=== PATIENT | female | born 1940 | race Caucasian/White ===

== ENCOUNTER 2018-07-08 14:43 | Emergency (ER) | payer OTHER ==
[~2018-07-08] VITALS: Ht 154.9 cm; Wt 54.4 kg
[2018-07-08 15:25] VITALS: Ht 154.9 cm; Wt 54.4 kg
[2018-07-08 16:08] LABS: microscopic required? NO
[2018-07-08 16:18] LABS: urine erythrocyte NEGATIVE (NEGATIVE)
[2018-07-08 16:19] LABS: BASOPHIL % 0.5 % (0-2)
[2018-07-08 16:28] LABS: CALCIUM 8.2 mg/dL (8.5-10.1); CARBON DIOXIDE 26.7 mmol/L (21-32); CHLORIDE SERUM 102 mmol/L (98-107); CREATININE SERUM 0.7 mg/dL (0.6-1.0); GLUCOSE SERUM 112 mg/dL (74-106); POTASSIUM SERUM 4.1 mmol/L (3.5-5.1); SODIUM SERUM 136 mmol/L (136-145)
[2018-07-08 16:30] LABS: AMPHETAMINE QUAL UR NONE DETECTED (See below)
[2018-07-08 16:35] LABS: PLATELET COUNT 480 x10^3mcL (130-400); RED CELL DISTRIBUTION WIDTH 16.2 % (11.5-14.5)
[2018-07-08 16:39] LABS: ALKALINE PHOSPHATASE 77 U/L (46-116); ALT/SGPT 10 U/L (14-59); AMYLASE 52 U/L (25-115); AST/SGOT 13 U/L (15-37); BILIRUBIN TOTAL 0.27 mg/dL (0.20-1.00); CHOLESTEROL 143 mg/dL (<200); HDL CHOLESTEROL 44 mg/dL (40-60); LIPASE 134 IU/L (73-393); MAGNESIUM 2.2 mg/dL (1.8-2.4); T4(THYROXINE) 7.1 ug/dL (4.7-13.3); TOTAL PROTEIN, SERUM 6.4 g/dL (6.4-8.2)
[2018-07-08 16:40] LABS: ALBUMIN 2.7 g/dL (3.4-5.0)
[2018-07-08 18:31] VITALS: BP 118/74
== END 2018-07-08 18:31 | disposition home or self-care (01) ==
LOC: ED 14:43
PROVIDERS: Emergency Medicine
DX: F03.90 Unspecified dementia, unspecified severity, without behavioral disturbance, psychotic disturbance, mood disturbance, and anxiety (principal); D64.9 Anemia, unspecified; N93.9 Abnormal uterine and vaginal bleeding, unspecified
CPT/HCPCS: 36415; 82962; G0480

== ENCOUNTER 2018-12-09 18:49 | Emergency (ER) | payer OTHER ==
[~2018-12-09] VITALS: Ht 154.9 cm; Wt 49.9 kg
[2018-12-09 19:05] VITALS: BP 138/75; Ht 154.9 cm; Wt 49.9 kg
== END 2018-12-09 19:35 | disposition left against medical advice (07) ==
LOC: ED 18:49
DX: F03.90 Unspecified dementia, unspecified severity, without behavioral disturbance, psychotic disturbance, mood disturbance, and anxiety (principal)

== ENCOUNTER 2019-06-10 23:29 | Inpatient (IN) | payer OTHER ==
[~2019-06-10] VITALS: Ht 147.3 cm; Wt 46.0 kg
[2019-06-10 23:37] VITALS: Ht 147.3 cm; Wt 46.0 kg
[2019-06-11 00:21] LABS: BASOPHIL % 0.8 % (0-2)
[2019-06-11 00:24] LABS: PLATELET COUNT 459 x10^3mcL (130-400); RED CELL DISTRIBUTION WIDTH 19.8 % (11.5-14.5)
[2019-06-11 00:43] LABS: rbc morphology (normal/abnorm) ABNORMAL (NORMAL)
[2019-06-11 00:44] LABS: acanthocyte (spur cell) 1+
[2019-06-11 00:47] LABS: ALKALINE PHOSPHATASE 79 U/L (46-116); ALT/SGPT 15 U/L (14-59); AST/SGOT 11 U/L (15-37); BILIRUBIN TOTAL 0.3 mg/dL (0.20-1.00); CALCIUM 7.8 mg/dL (8.5-10.1); CARBON DIOXIDE 26.2 mmol/L (21-32); CHLORIDE SERUM 93 mmol/L (98-107); CREATININE SERUM 0.6 mg/dL (0.6-1.0); GLUCOSE SERUM 119 mg/dL (74-106); POTASSIUM SERUM 4.8 mmol/L (3.5-5.1)
[2019-06-11 00:48] LABS: ALBUMIN 2.8 g/dL (3.4-5.0); TOTAL PROTEIN, SERUM 5.8 g/dL (6.4-8.2)
[2019-06-11 00:48] LABS: microscopic required? NO
[2019-06-11 00:49] LABS: SODIUM SERUM 124 mmol/L (136-145)
[2019-06-11 00:58] LABS: urine erythrocyte NEGATIVE (NEGATIVE)
[2019-06-11 01:30] LABS: AMPHETAMINE QUAL UR NONE DETECTED (See below)
[2019-06-11 01:38] LABS: CHOLESTEROL 91 mg/dL (<200); HDL CHOLESTEROL 33 mg/dL (40-60); LIPASE 156 IU/L (73-393); MAGNESIUM 2.3 mg/dL (1.8-2.4); T4(THYROXINE) 6.4 ug/dL (4.7-13.3)
[2019-06-11 05:43] LABS: BASOPHIL % 0.6 % (0-2); PLATELET COUNT 371 x10^3mcL (130-400)
[2019-06-11 05:49] LABS: RED CELL DISTRIBUTION WIDTH 27.3 % (11.5-14.5)
[2019-06-11 06:04] LABS: CALCIUM 7.5 mg/dL (8.5-10.1); CARBON DIOXIDE 21.5 mmol/L (21-32); CHLORIDE SERUM 103 mmol/L (98-107); CREATININE SERUM 0.6 mg/dL (0.6-1.0); GLUCOSE SERUM 104 mg/dL (74-106); MAGNESIUM 2.1 mg/dL (1.8-2.4); PHOSPHOROUS 3.7 mg/dL (2.5-4.9); POTASSIUM SERUM 4.2 mmol/L (3.5-5.1); SODIUM SERUM 134 mmol/L (136-145)
[2019-06-11 06:08] LABS: rbc morphology (normal/abnorm) ABNORMAL (NORMAL)
[2019-06-11 08:20] VITALS: BP 167/80
[2019-06-11 08:45] VITALS: BP 135/51; BP 235/51
[2019-06-11 13:11] VITALS: BP 137/52
[2019-06-11 13:30] LABS: IRON 128 ug/dL (50-170); TOTAL IRON BINDING CAPACITY 404 ug/dL (250-450)
[2019-06-11 16:14] VITALS: BP 153/53
[2019-06-11 19:55] VITALS: BP 117/46
[2019-06-12 04:44] VITALS: BP 131/48
[2019-06-12 07:09] LABS: BASOPHIL % 1.5 % (0-2); PLATELET COUNT 342 x10^3mcL (130-400)
[2019-06-12 07:23] LABS: CARBON DIOXIDE 23.9 mmol/L (21-32); CHLORIDE SERUM 99 mmol/L (98-107); CREATININE SERUM 0.6 mg/dL (0.6-1.0); GLUCOSE SERUM 89 mg/dL (74-106); MAGNESIUM 2.2 mg/dL (1.8-2.4); PHOSPHOROUS 3.7 mg/dL (2.5-4.9); SODIUM SERUM 132 mmol/L (136-145)
[2019-06-12 07:40] LABS: RED CELL DISTRIBUTION WIDTH 28.2 % (11.5-14.5); rbc morphology (normal/abnorm) ABNORMAL (NORMAL)
[2019-06-12 09:42] VITALS: BP 122/43
[2019-06-12 12:10] VITALS: BP 124/40
[2019-06-12 17:00] VITALS: BP 100/43
[2019-06-12 22:10] VITALS: BP 99/78
[2019-06-13 04:41] VITALS: BP 91/53
[2019-06-13 06:48] LABS: PLATELET COUNT 338 x10^3mcL (130-400)
[2019-06-13 06:54] LABS: CALCIUM 7.6 mg/dL (8.5-10.1); CARBON DIOXIDE 23.7 mmol/L (21-32); CHLORIDE SERUM 101 mmol/L (98-107); CREATININE SERUM 0.7 mg/dL (0.6-1.0); GLUCOSE SERUM 121 mg/dL (74-106); POTASSIUM SERUM 3.8 mmol/L (3.5-5.1); SODIUM SERUM 135 mmol/L (136-145)
[2019-06-13 14:24] LABS: BAND NEUTROPHIL 0 % (0-10); BASOPHIL 0 % (0-2); MONOCYTE 2 % (0-7); SEGMENTED NEUTROPHILS 97 % (37-75)
[2019-06-13 14:25] LABS: PLATELET MORPHOLOGY PLATELETS INCREASED; rbc morphology (normal/abnorm) ABNORMAL (NORMAL)
[2019-06-13 18:00] VITALS: BP 99/62
[2019-06-13 20:49] VITALS: BP 103/62
[2019-06-14] VITALS (7 sets, daily range): BP systolic 104–132; BP diastolic 36–105
[2019-06-14 07:06] LABS: CALCIUM 8.1 mg/dL (8.5-10.1); CARBON DIOXIDE 22.9 mmol/L (21-32); CHLORIDE SERUM 102 mmol/L (98-107); CREATININE SERUM 0.5 mg/dL (0.6-1.0); GLUCOSE SERUM 80 mg/dL (74-106); POTASSIUM SERUM 3.3 mmol/L (3.5-5.1); SODIUM SERUM 133 mmol/L (136-145)
[2019-06-14 07:44] LABS: PLATELET COUNT 64 x10^3mcL (130-400); RED CELL DISTRIBUTION WIDTH 29.3 % (11.5-14.5)
[2019-06-14 09:42] LABS: BAND NEUTROPHIL 0 % (0-10); BASOPHIL 0 % (0-2); MONOCYTE 9 % (0-7); SEGMENTED NEUTROPHILS 82 % (37-75)
[2019-06-14 09:43] LABS: PLATELET MORPHOLOGY PLATELETS DECREASED
[2019-06-14 09:44] LABS: rbc morphology (normal/abnorm) ABNORMAL (NORMAL)
[2019-06-14 09:46] LABS: ovalocyte/elliptocyte 2+
[2019-06-15] VITALS (7 sets, daily range): BP systolic 112–139; BP diastolic 40–70
[2019-06-15 06:52] LABS: CALCIUM 8.5 mg/dL (8.5-10.1); CARBON DIOXIDE 24.6 mmol/L (21-32); CHLORIDE SERUM 107 mmol/L (98-107); CREATININE SERUM 0.5 mg/dL (0.6-1.0); GLUCOSE SERUM 90 mg/dL (74-106); POTASSIUM SERUM 3.5 mmol/L (3.5-5.1); SODIUM SERUM 139 mmol/L (136-145)
[2019-06-15 07:32] LABS: BASOPHIL % 0.4 % (0-2); PLATELET COUNT 311 x10^3mcL (130-400)
[2019-06-15 07:49] LABS: RED CELL DISTRIBUTION WIDTH 29.4 % (11.5-14.5)
[2019-06-15 11:03] LABS: rbc morphology (normal/abnorm) ABNORMAL (NORMAL)
[2019-06-16 06:13] VITALS: BP 146/45
[2019-06-16 07:15] LABS: BASOPHIL % 0.5 % (0-2); PLATELET COUNT 293 x10^3mcL (130-400)
[2019-06-16 07:16] LABS: RED CELL DISTRIBUTION WIDTH 30.9 % (11.5-14.5)
[2019-06-16 08:14] LABS: CARBON DIOXIDE 24 mmol/L (21-32); CHLORIDE SERUM 101 mmol/L (98-107); POTASSIUM SERUM 3.3 mmol/L (3.5-5.1); SODIUM SERUM 135 mmol/L (136-145)
[2019-06-16 08:16] LABS: CREATININE SERUM 0.6 mg/dL (0.6-1.0); GLUCOSE SERUM 80 mg/dL (74-106)
[2019-06-16 08:17] LABS: CALCIUM 8.4 mg/dL (8.5-10.1)
[2019-06-16] MEDS ORDERED: FER300 PO (09:12)
[2019-06-16] MEDS ORDERED: LAC30L PO (09:12)
[2019-06-16] MEDS ORDERED: LIPI10 PO (09:12)
[2019-06-16] MEDS ORDERED: PRI20 PO (09:12)
[2019-06-16 09:36] LABS: rbc morphology (normal/abnorm) ABNORMAL (NORMAL)
[2019-06-16 12:25] VITALS: BP 122/101
[2019-06-16 13:12] VITALS: BP 127/52; BP 146/45; BP 96/39
[2019-06-16 16:24] VITALS: BP 111/38
[2019-06-16 19:22] VITALS: BP 129/60
[2019-06-17 04:38] VITALS: BP 141/42
[2019-06-17 09:43] VITALS: BP 115/44
[2019-06-17 12:56] VITALS: BP 127/52
[2019-06-17 17:23] VITALS: BP 128/66
[2019-06-17 20:23] VITALS: BP 136/49
[2019-06-18 05:33] VITALS: BP 141/97
[2019-06-18 07:20] LABS: PLATELET COUNT 337 x10^3mcL (130-400)
[2019-06-18 08:03] LABS: BASOPHIL % 0 % (0-2); RED CELL DISTRIBUTION WIDTH 33.9 % (11.5-14.5)
[2019-06-18 08:58] VITALS: BP 113/43
[2019-06-18 11:46] LABS: rbc morphology (normal/abnorm) ABNORMAL (NORMAL)
[2019-06-18 18:08] VITALS: BP 114/41
[2019-06-18 21:32] VITALS: BP 111/43
[2019-06-19 05:44] VITALS: BP 138/50
[2019-06-19 06:46] LABS: BASOPHIL % 0.6 % (0-2); PLATELET COUNT 306 x10^3mcL (130-400)
[2019-06-19 07:56] LABS: CARBON DIOXIDE 23.4 mmol/L (21-32); CHLORIDE SERUM 101 mmol/L (98-107); CREATININE SERUM 0.5 mg/dL (0.6-1.0); GLUCOSE SERUM 83 mg/dL (74-106); POTASSIUM SERUM 3.3 mmol/L (3.5-5.1); SODIUM SERUM 135 mmol/L (136-145)
[2019-06-19 07:57] LABS: CALCIUM 7.5 mg/dL (8.5-10.1)
[2019-06-19 07:59] LABS: RED CELL DISTRIBUTION WIDTH 34.6 % (11.5-14.5)
[2019-06-19 08:10] VITALS: BP 139/55
[2019-06-19 08:37] LABS: rbc morphology (normal/abnorm) ABNORMAL (NORMAL)
[2019-06-19 17:33] VITALS: BP 117/42
[2019-06-19 20:59] VITALS: BP 106/42
[2019-06-20 06:09] VITALS: BP 130/55
[2019-06-20 08:20] VITALS: BP 122/33
[2019-06-20 11:40] VITALS: BP 104/31
[2019-06-20 13:06] LABS: BASOPHIL % 0.2 % (0-2); PLATELET COUNT 395 x10^3mcL (130-400)
[2019-06-20 13:11] LABS: RED CELL DISTRIBUTION WIDTH 34.1 % (11.5-14.5)
[2019-06-20 14:20] LABS: POTASSIUM SERUM 3.9 mmol/L (3.5-5.1); SODIUM SERUM 134 mmol/L (136-145)
[2019-06-20 14:21] LABS: CALCIUM 8.2 mg/dL (8.5-10.1); CARBON DIOXIDE 22.7 mmol/L (21-32); CHLORIDE SERUM 100 mmol/L (98-107); CREATININE SERUM 0.7 mg/dL (0.6-1.0); GLUCOSE SERUM 104 mg/dL (74-106)
[2019-06-20 15:42] VITALS: BP 95/39
[2019-06-20 20:00] VITALS: BP 120/41
[2019-06-21 04:32] VITALS: BP 112/48
[2019-06-21 06:33] LABS: BASOPHIL % 0.6 % (0-2)
[2019-06-21 06:44] LABS: CARBON DIOXIDE 28.3 mmol/L (21-32); CHLORIDE SERUM 99 mmol/L (98-107); CREATININE SERUM 0.6 mg/dL (0.6-1.0); GLUCOSE SERUM 81 mg/dL (74-106); POTASSIUM SERUM 3.7 mmol/L (3.5-5.1); SODIUM SERUM 134 mmol/L (136-145)
[2019-06-21 06:51] LABS: RED CELL DISTRIBUTION WIDTH 33.6 % (11.5-14.5)
[2019-06-21 06:52] LABS: PLATELET COUNT 407 x10^3mcL (130-400)
[2019-06-21 08:00] VITALS: BP 121/42
[2019-06-21 10:17] VITALS: BP 121/42
[2019-06-21 11:22] LABS: rbc morphology (normal/abnorm) ABNORMAL (NORMAL)
[2019-06-21 11:51] VITALS: BP 96/39
[2019-06-21 16:22] VITALS: BP 102/31
== END 2019-06-21 20:30 | disposition home or self-care (01) | DRG 746 ==
LOC: ED 23:29 → MU 06-11 00:33 → DU 06-11 00:33 → MU 06-11 13:07 → DU 06-11 17:28 → MU 06-16 10:43
PROVIDERS: Emergency Medicine; Internal Medicine; Internal Medicine Gastroenterology; Student in an Organized Health Care Education/Training Program; ADMIT Family Medicine
PROC: 0UBG7ZX Excision of Vagina, Via Natural or Artificial Opening, Diagnostic (ICD-10-PCS; principal; 2019-06-11)
PROC: 0DB78ZX Excision of Stomach, Pylorus, Via Natural or Artificial Opening Endoscopic, Diagnostic (ICD-10-PCS; 2019-06-15 08:00)
DX: C53.9 Malignant neoplasm of cervix uteri, unspecified (principal); E43 Unspecified severe protein-calorie malnutrition; D62 Acute posthemorrhagic anemia; K55.1 Chronic vascular disorders of intestine; E87.1 Hypo-osmolality and hyponatremia; K22.10 Ulcer of esophagus without bleeding; K44.9 Diaphragmatic hernia without obstruction or gangrene; K21.0 Gastro-esophageal reflux disease with esophagitis; N93.9 Abnormal uterine and vaginal bleeding, unspecified; K57.30 Diverticulosis of large intestine without perforation or abscess without bleeding; F03.90 Unspecified dementia, unspecified severity, without behavioral disturbance, psychotic disturbance, mood disturbance, and anxiety; Z68.21 Body mass index [BMI] 21.0-21.9, adult
CPT/HCPCS: 43235; 45378; 82962; 83880; G0378; G0480; J0690; J1200; J1610; J2060; J2250; J2310; J2405; J2704; J2765; J2916; J3010; J3490; J7040; J7050; J7120; J7620; P9016; Q0092; Q0163